=== PATIENT | male | born 1965 | race African-American/Black ===

== ENCOUNTER 2018-03-18 17:21 | Emergency (ER) | payer OTHER ==
[~2018-03-18] VITALS: Ht 182.9 cm; Wt 83.9 kg
[2018-03-18 19:27] VITALS: BP 147/87
== END 2018-03-18 19:28 ==
LOC: ER 17:21
DX: T65.891A Toxic effect of other specified substances, accidental (unintentional), initial encounter (principal); H57.13 Ocular pain, bilateral; Y92.9 Unspecified place or not applicable; M54.5 Low back pain